=== PATIENT | female | born 1940 | race Caucasian/White ===

== ENCOUNTER 2017-10-17 22:09 | Emergency (ER) | payer MEDICARE ==
[2017-10-17 23:35] LABS: BASOPHILS 0.1 % (0-2); EOSINOPHILS 2.7 % (0-7); HEMATOCRIT 33.5 % (36.0-48.0); HEMOGLOBIN 10.7 g/dL (12-16); IMMATURE GRANULOCYTES 0.3 % (0-5); LYMPHOCYTES 33.2 % (15-50); MCH 25.7 pg (26.0-34.0); MCHC 31.9 g/dL (31.0-37.0); MCV 80.5 fL (80.0-100.0); MEAN PLATELET VOLUME 10.2 fL (7.4-10.4); MONOCYTES 2.7 % (2-11); PLATELET COUNT 268 10x3/uL (130-400); RBC 4.16 10x6/uL (4.00-5.40); RDW 14.1 % (11.5-14.5); WBC 7.1 10x3/uL (4.8-10.8)
[2017-10-17 23:36] LABS: APPEARANCE CLEAR (CLEAR); BILIRUBIN NEGATIVE (NEGATIVE); COLOR YELLOW (YELLOW); GLUCOSE 500 mg/dL (NEGATIVE); KETONE NEGATIVE (NEGATIVE); NITRITE NEGATIVE (NEGATIVE); PROTEIN NEGATIVE (NEGATIVE); UROBILINOGEN NORMAL (NORMAL)
[2017-10-17 23:39] LABS: KETONE - SERUM NEGATIVE (NEGATIVE)
[2017-10-17 23:48] LABS: ALBUMIN 3.4 g/dL (3.4-5.0); ALKALINE PHOSPHATASE 110 U/L (46-116); ALT (SGPT) 18 U/L (10-68); CALC OSMOLALITY 289 mosm/kg (275-300); CALCIUM 8.7 mg/dL (8.5-10.1); CARBON DIOXIDE 28.5 mmol/L (21.0-32.0); CHLORIDE - SERUM 97 mmol/L (98-107); CREATININE - SERUM 1.1 mg/dL (0.6-1.3); GLUCOSE 364 mg/dL (74-106); POTASSIUM - SERUM 3.4 mmol/L (3.5-5.1); PROTEIN - SERUM 7.7 g/dL (6.4-8.2); SODIUM 136 mmol/L (136-145); UREA NITROGEN 21 mg/dL (7-18); eGFR NON AFRICAN AMERICAN 51 mL/min (90-120)
[2017-10-17 23:57] LABS: CREATINE KINASE 73 UL (21-215); MAGNESIUM - SERUM 1.3 mg/dL (1.8-2.4); PRO BNP 247 pg/mL (0-450); TROPONIN-I < 0.017 ng/mL (0.000-0.060)
== END 2017-10-18 01:47 | disposition home or self-care (01) ==
LOC: D.ER 22:09
PROVIDERS: Emergency Medicine
DX: E87.6 Hypokalemia (principal); E83.42 Hypomagnesemia; D64.9 Anemia, unspecified; K21.9 Gastro-esophageal reflux disease without esophagitis; I10 Essential (primary) hypertension; E11.9 Type 2 diabetes mellitus without complications

== ENCOUNTER 2018-05-12 18:45 | Emergency (ER) | payer MEDICARE ==
[~2018-05-12] VITALS: Ht 160 cm; Wt 63.6 kg
[2018-05-12 18:56] VITALS: Ht 160 cm; Wt 63.6 kg
[2018-05-12 19:40] LABS: BASOPHILS 0.1 % (0-2); EOSINOPHILS 2.4 % (0-7); HEMATOCRIT 33.1 % (36.0-48.0); HEMOGLOBIN 11.2 g/dL (12-16); IMMATURE GRANULOCYTES 0.2 % (0-5); LYMPHOCYTES 23.4 % (15-50); MCH 28.4 pg (26.0-34.0); MCHC 33.8 g/dL (31.0-37.0); MEAN PLATELET VOLUME 9.9 fL (7.4-10.4); MONOCYTES 4.8 % (2-11); NEUTROPHILS 69.1 % (40-80); RBC 3.94 10x6/uL (4.00-5.40); RDW 12.9 % (11.5-14.5); WBC 9.4 10x3/uL (4.8-10.8)
[2018-05-12 19:43] LABS: PLATELET COUNT 452 10x3/uL (130-400)
[2018-05-12 20:56] LABS: ALBUMIN 3.1 g/dL (3.4-5.0); ANION GAP 11.7 mmol/L (8-16); BILIRUBIN - TOTAL 0.12 mg/dL (0.2-1.3); CALCIUM 9.1 mg/dL (8.5-10.1); CARBON DIOXIDE 28.2 mmol/L (21.0-32.0); CREATININE - SERUM 1.1 mg/dL (0.6-1.3); POTASSIUM - SERUM 3.9 mmol/L (3.5-5.1); PROTEIN - SERUM 7.7 g/dL (6.4-8.2)
[2018-05-12] MEDS ORDERED: TORADOL10 MG PO (22:18)
[2018-05-12] MEDS ORDERED: VIBRAMYCIN 100100 MG PO (22:18)
[2018-05-12 22:58] VITALS: BP 146/75
[2018-05-13] MEDS ORDERED: CELEBREX 100 M100 MG PO (03:44)
== END 2018-05-12 22:45 | disposition home or self-care (01) ==
LOC: D.ER 18:45
PROVIDERS: Family Medicine
DX: L03.115 Cellulitis of right lower limb (principal); E11.9 Type 2 diabetes mellitus without complications; K21.9 Gastro-esophageal reflux disease without esophagitis

== ENCOUNTER 2018-05-13 03:26 | Emergency (ER) | payer MEDICARE ==
[~2018-05-13] VITALS: Ht 160 cm; Wt 63.6 kg
[~2018-05-13 03:26] MED LIST: TORADOL10 MG PO; VIBRAMYCIN 100100 MG PO
[2018-05-13 03:32] VITALS: Ht 160 cm; Wt 63.6 kg
[2018-05-13] MEDS ORDERED: CELEBREX 100 M100 MG PO (03:44)
[2018-05-13 04:17] VITALS: BP 150/78
== END 2018-05-13 04:15 | disposition home or self-care (01) ==
LOC: D.ER 03:26
DX: E11.9 Type 2 diabetes mellitus without complications (principal); G89.29 Other chronic pain; L97.829 Non-pressure chronic ulcer of other part of left lower leg with unspecified severity; M25.512 Pain in left shoulder; K21.9 Gastro-esophageal reflux disease without esophagitis